=== PATIENT | female | born 1950 | race Caucasian/White ===

== ENCOUNTER 2018-01-15 19:10 | Emergency (ER) | payer MEDICARE ==
[~2018-01-15] VITALS: Ht 162.6 cm; Wt 113.6 kg
[2018-01-15 20:11] LABS: BASOPHILS % (AUTO) 0.6 % (0.0-2.0); EOSINOPHILS % (AUTO) 1.3 % (1.0-6.0); HEMATOCRIT 29.4 % (36-46); HEMOGLOBIN 10.6 g/dL (12.0-16.0); LYMPHOCYTES # (AUTO) 1.7 K/uL (1.0-4.8); LYMPHOCYTES % (AUTO) 25.6 % (22.0-44.0); MEAN CORPUSCULAR HEMOGLOBIN 35.1 pg (26.0-34.0); MEAN CORPUSCULAR VOLUME 98 fL (80-100); MONOCYTES # (AUTO) 0.7 K/uL (0.1-1.0); MONOCYTES % (AUTO) 10.2 % (2.0-9.0); NEUTROPHILS # (AUTO) 4.2 K/uL (1.8-7.7); NEUTROPHILS % (AUTO) 62.3 % (40.0-70.0); PLATELET COUNT (AUTO) 147 K/uL (150-450); RED BLOOD CELL COUNT(AUTO) 3.01 MIL/uL (4.00-5.20); RED CELL DISTRIBUTION WIDTH 14.7 % (11.5-14.5)
[2018-01-15] MEDS ORDERED: INSU3INS3 SQ (20:18)
[2018-01-15] MEDS ORDERED: QUET400T PO (20:18)
[2018-01-15] MEDS ORDERED: LORA-192 PO (20:18)
[2018-01-15] MEDS ORDERED: HYDR-4061 PO (20:18)
[2018-01-15] MEDS ORDERED: MELA5TAB12 PO (20:18)
[2018-01-15] MEDS ORDERED: QUET50TA PO (20:18)
[2018-01-15] MEDS ORDERED: METO-558 PO (20:19)
[2018-01-15] MEDS ORDERED: BISA10SU61 RC (20:19)
[2018-01-15] MEDS ORDERED: BENZ2AMP2 PO (20:19)
[2018-01-15] MEDS ORDERED: OMEG-112 PO (20:19)
[2018-01-15] MEDS ORDERED: ACET-784 PO (20:19)
[2018-01-15] MEDS ORDERED: LISI5TAB PO (20:19)
[2018-01-15] MEDS ORDERED: ADV250 IH (20:19)
[2018-01-15] MEDS ORDERED: ASCO500C18 PO (20:19)
[2018-01-15] MEDS ORDERED: METO5VIA2 PO (20:19)
[2018-01-15] MEDS ORDERED: GLUC1KIT IM (20:19)
[2018-01-15] MEDS ORDERED: MAGN800O PO (20:19)
[2018-01-15] MEDS ORDERED: VITAD1000 PO (20:19)
[2018-01-15] MEDS ORDERED: PANT20TA12 PO (20:19)
[2018-01-15] MEDS ORDERED: DUO NEB NEB (20:19)
[2018-01-15] MEDS ORDERED: INSU100V SQ (20:19)
[2018-01-15] MEDS ORDERED: FERR325T22 PO (20:19)
[2018-01-15] MEDS ORDERED: FE RC (20:19)
[2018-01-15 20:24] LABS: ANION GAP 8 mmol/L (8-16); CALCIUM, TOTAL 8.7 mg/dL (8.8-10.5); CARBON DIOXIDE 26 mmol/L (22-29); CHLORIDE 102 mmol/L (98-107); CREATININE 1.69 mg/dL (0.60-1.30); GLOMERULAR FILTR. RATE CALC 30 mL/min (>60); GLUCOSE,RANDOM 128 mg/dL (70-110); POTASSIUM 4.8 mmol/L (3.5-5.1); SODIUM SERUM 136 mmol/L (136-145); UREA NITROGEN, BLOOD 39 mg/dL (7-18)
[2018-01-15 20:29] LABS: ALANINE AMINOTRANSFERASE 24 U/L (12-78); ALBUMIN 3.2 g/dL (3.4-5.0); ALKALINE PHOSPHATASE 65 U/L (46-116); ASPARTATE AMINOTRANSFERASE 14 U/L (15-37); BILIRUBIN,TOTAL 0.4 mg/dL (0.1-1.0); TOTAL PROTEIN, SERUM 7.2 g/dL (6.4-8.2)
[2018-01-15 21:37] VITALS: BP 99/57
== END 2018-01-15 21:50 | disposition home or self-care (01) ==
LOC: EMS 19:11
DX: F07.0 Personality change due to known physiological condition (principal); D64.9 Anemia, unspecified; R79.89 Other specified abnormal findings of blood chemistry; E11.9 Type 2 diabetes mellitus without complications; Z79.4 Long term (current) use of insulin
CPT/HCPCS: 36415; 80053; 85025; 99285; G0480

== ENCOUNTER 2018-02-08 12:54 | Emergency (ER) | payer MEDICARE ==
[~2018-02-08] VITALS: Ht 152.4 cm; Wt 159.1 kg
[~2018-02-08 12:54] MED LIST: ACET-784 PO; ADV250 IH; ASCO500C18 PO; BENZ2AMP2 PO; BISA10SU61 RC; DUO NEB NEB; FE RC; FERR325T22 PO; GLUC1KIT IM; HYDR-4061 PO; INSU100V SQ; INSU3INS3 SQ; LISI5TAB PO; LORA-192 PO; MAGN800O PO; MELA5TAB12 PO; METO-558 PO; METO5VIA2 PO; OMEG-112 PO; PANT20TA12 PO; QUET400T PO; QUET50TA PO; VITAD1000 PO
[2018-02-08] MEDS ORDERED: DiphenhydrAMINE HCL 50 MG/ML VIAL IM ONE (13:15)
[2018-02-08] MEDS ORDERED: HALOPERIDOL LACTATE 5 MG/ML VIAL IM ONE (13:15)
[2018-02-08] MEDS ORDERED: LORazepam 2 MG/ML VIAL IM ONE (13:15)
[2018-02-08 13:19] LABS: GLUCOSE,POINT OF CARE 132 MG/DL (70-110)
[2018-02-08 13:39] LABS: HEMOGLOBIN 10.3 g/dL (12.0-16.0); MEAN CORPUSCULAR HEMOGLOBIN 33.2 pg (26.0-34.0); MEAN CORPUSCULAR HGB CONC 34.3 G/dL (31.0-37.0); MEAN CORPUSCULAR VOLUME 97 fL (80-100); PLATELET COUNT (AUTO) 142 K/uL (150-450); RED CELL DISTRIBUTION WIDTH 14.2 % (11.5-14.5)
[2018-02-08 13:48] LABS: ANION GAP 9 mmol/L (8-16); CALCIUM, TOTAL 9.3 mg/dL (8.8-10.5); CARBON DIOXIDE 25 mmol/L (22-29); CHLORIDE 101 mmol/L (98-107); CREATININE 1.74 mg/dL (0.60-1.30); GLOMERULAR FILTR. RATE CALC 29 mL/min (>60); GLUCOSE,RANDOM 141 mg/dL (70-110); POTASSIUM 5.8 mmol/L (3.5-5.1); SODIUM SERUM 135 mmol/L (136-145); UREA NITROGEN, BLOOD 48 mg/dL (7-18)
[2018-02-08 13:54] LABS: ALANINE AMINOTRANSFERASE 18 U/L (12-78); ALKALINE PHOSPHATASE 60 U/L (46-116); ASPARTATE AMINOTRANSFERASE 15 U/L (15-37); BILIRUBIN,TOTAL 0.3 mg/dL (0.1-1.0); TOTAL PROTEIN, SERUM 7.2 g/dL (6.4-8.2)
[2018-02-08 14:07] LABS: BAND NEUTROPHILS % (MANUAL) 0 % (0-5); LYMPHOCYTES % (MANUAL) 13 % (22-44); MONOCYTES % (MANUAL) 1 % (2-9); REACTIVE LYMPHOCYTES 2 % (0-0); SEGMENTED NEUTROPHILS % 84 % (40-70)
[2018-02-08 16:20] VITALS: BP 135/74
== END 2018-02-08 16:48 | disposition home or self-care (01) ==
LOC: EMS 12:55
DX: F20.9 Schizophrenia, unspecified (principal); N28.9 Disorder of kidney and ureter, unspecified; K21.9 Gastro-esophageal reflux disease without esophagitis; E11.9 Type 2 diabetes mellitus without complications; I11.0 Hypertensive heart disease with heart failure; I50.9 Heart failure, unspecified; J45.909 Unspecified asthma, uncomplicated; Z79.4 Long term (current) use of insulin; Z91.030 Bee allergy status
CPT/HCPCS: 36415; 80053; 82962; 85025; 96372; 99284; G0480; J1200; J1630; J2060